=== PATIENT | male | born 1945 | race Caucasian/White ===

== ENCOUNTER → 2025-03-23 12:17 | Outpatient (REF) | payer MEDICARE, BC, SELFPAY ==
[2025-03-23 13:02] LABS: Hematocrit 38.3 % (39.0-52.0); Hemoglobin 12.8 g/dL (13.0-18.0); Mean Corp Hgb Conc. 33.4 g/dL (33.0-37.0); Mean Corpuscular Volume 93.9 fL (80.0-94.0); Nucleated Red Blood Cells % 0 % (-); Platelet Count 187 10^3/uL (130-400); Red Cell Dist. Width 13.2 % (11.5-14.5)
[2025-03-23 13:12] LABS: INR 1.11; PT 14.6 Sec (11.4-14.6)
[2025-03-23 13:14] LABS: ALT (SGPT) 24 U/L (0-50); AST (SGOT) 29 U/L (17-59); Albumin 4.5 g/dl (3.5-5.0); Alkaline Phosphatase 71 U/L (38-126); Blood Urea Nitrogen 19 mg/dl (9-20); Calcium 8.8 mg/dl (8.4-10.2); Carbon Dioxide 26 mmol/L (22-30); Chloride 103 mmol/L (98-107); Glucose 91 mg/dl (70-99); Magnesium 2.0 mg/dl (1.6-2.3); Potassium 4.7 mmol/L (3.5-5.1); Sodium 133 mmol/L (135-145); Total Protein 7.1 g/dl (6.3-8.2); eGFR > 60.00
== END ==
LOC: SDSPAT 12:17
PROVIDERS: ATTENDING PHYSICIAN Internal Medicine Cardiovascular Disease; FAMILY PHYSICIAN Internal Medicine; REFERRING PHYSICIAN Student in an Organized Health Care Education/Training Program
DX: I48.0 Paroxysmal atrial fibrillation (principal)
CPT/HCPCS: 36415; 75572; 80053; 83735; 85025; 85610; 86850; 86900; 86901; 93005; Q9967

== ENCOUNTER 2025-04-10 07:32 | Day surgery (SDC) | payer MEDICARE, BC, SELFPAY ==
[2025-03-23 12:34] VITALS: BMI 30.2
[2025-04-10] VITALS (15 sets, daily range): BP systolic 90–148; BP diastolic 50–77; BMI 30.2
--- NOTE | 2025-04-10 08:08 | ITS.CL.ABL ---
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
Ablation
Procedure Report:
ELECTROPHYSIOLOGIC STUDY AND POSSIBLE ABLATION
DATE: April 02, 2025
Primary Care Provider: Dr. Jose R Aguirre
Primary Molding Line Assistant: Milvia MICHAEL
INDICATION:
Symptomatic Atrial Fibrillation and atrial flutter.
Paroxysmal
HISTORY: See H and P.
Symptomatic AF, poorly controlled with attempted medical therapy.
He was referred for electrophysiologic consultation from Milvia MICHAEL regarding consideration for ablative strategies for rhythm control of symptomatic atrial fibrillation and atrial flutter.
He has demonstrated both atrial fibrillation as well as a more regular rhythm consistent with an atrial tachycardia. He has required cardioversion in the past. He has been maintained on antiarrhythmic drug therapy as well as rate control with
low-dose flecainide as well as low-dose beta-corey. Medical titration has been limited by marked bradycardia.
Mr. 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
remote DCCV currently on flecainide 50 mg twice daily.�
HAS-BLED: 1
Age
CHADSVASc: 2
Age
PRESENTING RHYTHM: SR
HISTORY: See H and P.
Symptomatic AF, poorly controlled with attempted medical therapy.
ANTIARRHYTHMIC DRUG: Flecainide
ANTICOAGULATION: Eliquis 5 mg twice daily
'TIME-OUT': called and confirmed.
SEDATION/ANESTHESIA: provided via the anesthesia department using general anesthesia.
PROCEDURE:
Ultrasound Guidance with real-time visualization of needle insertion and vessel patency performed by me for femoral venous Vascular Access.
Under real-time US guidance, the needle was advanced with negative pressure into the vein. The needle was seen entering the vessel lumen with a good return of dark red flow, the syringe was removed, non-pulsatile, dark red blood low was noted and
the wire was passed without difficulty, then the needle was removed. US confirmed the wire was in the vein, not going into an artery,
Images were taken and saved for the patient's permanent record. Imaging findings typical femoral venous anatomy. Direct visualization of needle puncture into the femoral vein was observed and recorded.
A decapolar CS catheter was placed within the CS for mapping and pacing.
The intracardiac ultrasound catheter was positioned in the RA for continuous intracardiac ultrasound imaging.
Heparin bolus and infusion to target ACT at 300 -350 seconds was administered. Transseptal puncture was performed. This entailed advancing a sheath with dilator into the superior vena cava and withdrawing both (monitoring intracardiac ultrasound,
fluoroscopy and tip pressure) with the tip oriented toward the atrial septum. The fossa ovalis was engaged (indicated by sudden displacement of the sheath tip as well as tenting of the fossa seen on intracardiac ultrasound).
Transseptal puncture was performed. Left atrial catheter position was confirmed by echocardiographic imaging, pressure monitoring (LA mean pressure [ ] mm Hg) and fluoroscopy. The sheath was advanced over the dilator and positioned in the left
atrium.
The Sphere 9 multipolar mapping/ablation Sphere-9 catheter was positioned through the transseptal sheath for high density mapping.
Geometry and voltage mapping was performed using the [employer] mapping system for three-dimensional electroanatomical mapping.
Catheter positioning was guided and confirmed using both I.C.E. and fluoroscopy.
Cardioversion resulted in sinus rhythm.
High density electroanatomical three-dimensional mapping demonstrated five PVs: LSPV, LIPV, RSPV, RMPV, RIPV.
Ablation strategy included PVI as well as mapping for extra PV contributors to atrial fibrillation which would also be targeted if present.
After accomplishing pulmonary venous isolation, mapping identified additional areas likely to be extra PV contributors to atrial fibrillation. These areas demonstrated patchy low voltage as well as complex fractionated electrograms. These areas can
be sites for the formation of rotors which can drive and maintain atrial fibrillation. These areas are known to be significant contributors to initiation and perpetuation of atrial fibrillation.
Additional energy applications/additional ablation sets targeted extra PV contributors to atrial fibrillation.
Targets for additional PFA ablation included:
LA posterior wall targeted with pulsed electric field energy isolating the posterior wall of the left atrium
After ablation of the posterior wall, additional targets were addressed:
LA inferior floor
These areas were ablated using pulsed electric field energy eliminating the extra PV contributors to atrial fibrillation.
At the end of left atrial ablation, there is electrical isolation of the pulmonary veins, the posterior wall, the inferior/floor of the left atrium rendering the sites no longer able to contribute to atrial fibrillation.
During mapping and ablation at the right superior pulmonary vein, and atrial tachycardia developed. Regular, cycle length 290 ms
Entrainment from the left atrium finds his left atrium is outside the tachycardia circuit.
Entrainment from right atrial electrodes finds the right atrium is within the tachycardia circuit.
High density electroanatomical mapping/activation mapping was then performed of the right atrium and this along with entrainment data defines typical counterclockwise right atrial flutter.
CTI ablation was then undertaken with the sphere 9 catheter. Radiofrequency energy was delivered closer to the tricuspid valve annulus and at the mid isthmus down to the inferior vena cava pulsed electric field energy was delivered. At no point
was there any ST segment elevation observed. During delivery of ablation, the tachycardia terminated to sinus rhythm. Ablation was completed to ensure bidirectional block at the CTI at approximately 6:00 in the LUXEMBOURGER 30 degree view. Differential
pacing was able to prove bidirectional block across the line.
Programmed electrostimulation including burst atrial pacing as well the delivery of decremental extrastimuli down to atrial effective refractory period and no sustained arrhythmias could be induced.
I.C.E. :
Pre-Ablation Post-Ablation
LVEF: 55 % 55 %
WMA: None none
Pericardial effusion: None none
LA Pressure (mmHg) 15
COMPLICATIONS:
None
SUMMARY:
- Mapping and ablation to isolate the PVs resulting in electrical isolation of the pulmonary veins
- Additional AF ablation sets X 2 after PVI (LA posterior wall, Inf/floor of the LA posterior wall) resulting in elimination of the targeted extra PV contributors to atrial fibrillation.
- Mapping and ablation of second tachycardia (right atrial flutter) rendering it non-inducible with programmed electrical stimulation
- 3-D Electroanatomical Mapping
- Intracardiac Ultrasound
- Ultrasound guidance for vascular access
Post ablation, I discussed today's findings and results with the patient's sister, Dorothy.
RECOMMENDATIONS:
- Observe in monitored bed.
- Maintain oral anticoagulation.
- Discontinue flecainide, continue metoprolol XL at 12.5 mg daily
- Office visit with ALEC Arteaga in 3 to 4 months
- Continue cardiovascular care with Milvia MICHAEL
- His preprocedure CTA findings several small pulmonary nodules and results have been forwarded to the [place] pulmonary nodule board for further review. I discussed this with the patient's sister.
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 We have communicated this to his sister and asked her to follow-up with his primary care provider and also to make an appointment with an ENT for further evaluation.
Copy to:
Primary Care Provider: Dr. Jose R Aguirre
Primary Molding Line Assistant: Milvia MICHAEL
[2025-04-10] MEDS: NSS 500 IV (08:32)
[2025-04-10 11:29] LABS: ACT-LR - POC 363 Seconds (116-155)
[2025-04-10 11:51] LABS: ACT-LR - POC 347 Seconds (116-155)
[2025-04-10 12:06] LABS: ACT-LR - POC 377 Seconds (116-155)
[2025-04-10] MEDS: FLOMAX 0.4 MG PO (12:58)
[2025-04-10] MEDS: TYLENOL 650 MG PO (13:03)
[2025-04-10] MEDS: PROSCAR 5 MG PO (13:46)
[2025-04-10] MEDS: ANESTHETIC LOZENGE 1 LOZENGE PO ×2 (13:52→20:08)
--- NOTE | 2025-04-10 14:28 | PTCARENOTE ---
Proscar and Flomax given. Has urge to void but is unable to . Bladder scanned for 529mls. Will rescan in 1 hr is pt uncomfortable and unable to void.
--- NOTE | 2025-04-10 15:53 | W.DS.TRANS ---
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
-
Discharge Instructions:
Discharge Diagnosis/Procedures Atrial fibrillation and flutter post ablation
Diet Low Cholesterol
Driving Restrictions No driving for 24 hours
Instructions:
Stand-Alone Forms: DC Instructions- Cath/EP Lab
Changes to Home Medications: Yes
Discharge Medications:
DC Medications w/original date entered in [facility]
apixaban 5 mg tablet (Eliquis) 5 mg PO BID 03/19/25
aspirin 81 mg tablet,delayed release 81 mg PO DAILY 03/19/25
atorvastatin 40 mg tablet 40 mg PO DAILY 03/19/25
finasteride 5 mg tablet 5 mg PO DAILY 03/19/25
latanoprost 0.005 % eye drops 1 drp ophthalmic (eye) DAILY 03/19/25
losartan 100 mg tablet 100 mg PO DAILY 03/19/25
metoprolol succinate 25 mg tablet,extended release 24 hr 12.5 mg PO DAILY 03/19/25
phenytoin sodium extended 100 mg capsule 300 mg PO DAILY 03/19/25
tamsulosin 0.4 mg capsule 0.4 mg PO HS 03/19/25
Home Medication Changes
stopped flecainide
Pending Results: No
--- NOTE | 2025-04-10 16:18 | CM ---
pt prev indep, lives with his sister in a 2 story home. no dc plannin gneeds noted. plan is for dc to home when medically stable.
--- NOTE | 2025-04-10 17:40 | PTCARENOTE ---
pt received from CCL RN, oriented, sister at bedside. SB on the monitor, HR 40-50s. palpable pulses. pt on RA. voids in urinal. bedrest. R groin c/d/i, no s/s of bleeding or hematoma. PIV.
[2025-04-10 18:14] LABS: Hepatitis C Antibody Negative (Negative)
[2025-04-10] MEDS: LIPITOR 40 MG PO (20:07)
[2025-04-10] MEDS: ELIQUIS 5 MG PO (20:08)
[2025-04-10] MEDS: XALATAN OPHTHALMIC SOLUTION 1 DROP BOTH EYES (20:08)
[2025-04-10] MEDS: NSS IV (20:10)
--- NOTE | 2025-04-11 02:45 | PTCARENOTE ---
Pt SB on monitor with Hr 47-53 bpm. vss Rt gtoin post PVI CDI, positive pulses. Pt denies pain or any discomfort. OOB with x 1 assist. Call pham within reach
[2025-04-11 03:41] VITALS: BP 125/63
[2025-04-11 04:21] LABS: Hematocrit 33.9 % (39.0-52.0); Hemoglobin 11.4 g/dL (13.0-18.0); Mean Corp Hgb Conc. 33.6 g/dL (33.0-37.0); Mean Corpuscular Volume 93.1 fL (80.0-94.0); Platelet Count 148 10^3/uL (130-400); Red Cell Dist. Width 13.9 % (11.5-14.5)
[2025-04-11] MEDS: ANESTHETIC LOZENGE 1 LOZENGE PO (04:29)
[2025-04-11 04:44] LABS: Blood Urea Nitrogen 19 mg/dl (9-20); Calcium 8.1 mg/dl (8.4-10.2); Carbon Dioxide 25 mmol/L (22-30); Chloride 109 mmol/L (98-107); Estimated Creatinine Clearance 75 ml/min; Glucose 93 mg/dl (70-99); Magnesium 2.0 mg/dl (1.6-2.3); Potassium 4.2 mmol/L (3.5-5.1); Sodium 135 mmol/L (135-145); eGFR > 60.00
[2025-04-11 07:13] VITALS: BP 129/63
--- NOTE | 2025-04-11 08:25 | W.PN.CARDCBS ---
Addendum entered and electronically signed by Gavin Galindo DO 04/11/25 09:48:
I saw and examined the patient.
The Emergency Department Rn's note was reviewed and I agree with the note.
Comment:
Patient seen and examined this morning. No acute events overnight. Patient resting comfortably in bed without complaint. Denies chest pain, shortness of breath, palpitations, weakness. Patient is status post PFA PVI and CTI flutter ablation
04/10/2025.
GEN: No distress, awake, Ox3
HEENT: supple, anicteric, mmm
LUNGS: CTA, no wheezes/rales
CV: Reg, S1/S2, no murmur
ABD: soft, BS+, NT/ND
EXT: No edema
NEURO: Gross non-focal
SKIN: No rash; right groin site clean, dry, intact, soft, nontender
Telemetry shows sinus rhythm
Stable for DC from CV standpoint.
Flecainide discontinued
Continue beta-corey, oral anticoagulation
Follow-up in office as scheduled appointment arranged
Original Note:
Today's Communication / Plan
-
Stable for discharge status post PVI
Flecainide stopped
Continue metoprolol and Eliquis
Follow-up in office in 3 months, appointment arranged
Impression / Plan
-
Primary supervisor shaving and splitting: Dr. Perez
Cardroom Attendant: Dr. Adriano Robles
Impression:
Paroxysmal atrial fibrillation
Typical atrial flutter
Status post pulsed field PVI and right atrial flutter ablation 04/02/2025
Hypertension.
Hyperlipidemia.
Benign prostatic hyperplasia.
Seizure disorder.
Glaucoma.
Cognitive defect
Ambulatory dysfunction
Pulmonary nodule seen on CT scan.
Former tobacco abuse
Plan:
-Status post pulsed field PVI with additional ablation set to left atrial posterior wall, inferior/floor of the LA posterior wall and ablation of right atrial flutter 04/11/2025
-Patient feels well with no palpitations
- no discomfort at right groin puncture site
-Telemetry personally reviewed, sinus bradycardia 44 to 56 bpm
- Maintain oral anticoagulation with Eliquis
- Flecainide discontinued post ablation
- Continue Toprol 12.5 mg daily
- EP CHRIS follow-up in 3 to 4 months
- Resume usual cardiovascular care with primary supervisor shaving and splitting Dr. Perez and Milvia MICHAEL
- Procedures CTA with several small pulmonary nodules, study forwarded to [place] pulmonary nodule board for further review, patient's sister aware
- Known left parotid mass, to follow-up with PCP and see ENT for eval, sister aware
Progress Note - Anglesmith Helper
Subjective
Date of Service: April 11, 2025
Status post PVI
Maintaining sinus rhythm
No palpitations, lightheadedness
No groin discomfort
Objective
Labs:
04/11/25 03:53
04/11/25 03:53
Labs
Hgb 11.4 g/dL (13.0-18.0) L 04/11/25 03:53
Hct 33.9 % (39.0-52.0) L 04/11/25 03:53
Plt Count 148 10^3/uL (130-400) 04/11/25 03:53
Sodium 135 mmol/L (135-145) 04/11/25 03:53
Potassium 4.2 mmol/L (3.5-5.1) 04/11/25 03:53
BUN 19 mg/dl (9-20) 04/11/25 03:53
Creatinine 0.8 mg/dL (0.7-1.3) 04/11/25 03:53
Glucose 93 mg/dl (70-99) 04/11/25 03:53
Vital Signs and I&O:
Vital Signs
Temp Pulse Resp BP Pulse Ox
98.7 F 44 18 129/63 96
04/11/25 07:14 04/11/25 08:15 04/11/25 07:14 04/11/25 07:13 04/11/25 07:14
Vital Signs
Temp Pulse Resp BP Pulse Ox
98.7 F 44 18 129/63 96
04/11/25 07:14 04/11/25 08:15 04/11/25 07:14 04/11/25 07:13 04/11/25 07:14
Intake & Output
04/09/25 04/10/25 04/11/25 04/12/25
06:59 06:59 06:59 06:59
Intake Total 2160 / 2160
Output Total 1200 / 1200 400 / 400
Balance 960 / 960 -400 / -400
Physical Exam
Physical Exam
GEN: No distress, awake, Ox3
HEENT: supple, anicteric, mmm
LUNGS: CTA, no wheezes/rales
CV: Reg, S1/S2, no murmur
ABD: soft, BS+, NT/ND
EXT: No edema
NEURO: Gross non-focal
SKIN: No rash
[2025-04-11] MEDS: COZAAR 100 MG PO (08:43)
[2025-04-11] MEDS: ELIQUIS 5 MG PO (08:43)
[2025-04-11] MEDS: PROSCAR 5 MG PO (08:43)
[2025-04-11] MEDS: TOPROL XL 12.5 MG PO (08:43)
[2025-04-11] MEDS: DILANTIN 300 MG PO (08:43)
[2025-04-11] MEDS: ASPIR LOW (ENTERIC COATED) 81 MG PO (08:43)
--- NOTE | 2025-04-11 09:01 | PTCARENOTE ---
pt aaox3. states no pain or sob. right groin site dressing c/d/i no ecchymosis noted.
== END 2025-04-11 11:36 | disposition home or self-care (01) ==
LOC: CATH 07:32
PROVIDERS: Nurse Practitioner Adult Health; ATTENDING PHYSICIAN Internal Medicine Cardiovascular Disease; FAMILY PHYSICIAN Internal Medicine; OTHER PHYSICIAN Student in an Organized Health Care Education/Training Program
DX: I48.0 Paroxysmal atrial fibrillation (principal); G40.909 Epilepsy, unspecified, not intractable, without status epilepticus; N40.0 Benign prostatic hyperplasia without lower urinary tract symptoms; E78.5 Hyperlipidemia, unspecified; I10 Essential (primary) hypertension; E66.9 Obesity, unspecified; H40.9 Unspecified glaucoma; I25.10 Atherosclerotic heart disease of native coronary artery without angina pectoris; I44.0 Atrioventricular block, first degree; Z87.891 Personal history of nicotine dependence; I48.3 Typical atrial flutter; Z79.82 Long term (current) use of aspirin; Z79.01 Long term (current) use of anticoagulants; Z79.899 Other long term (current) drug therapy; Z90.49 Acquired absence of other specified parts of digestive tract
CPT/HCPCS: C1733; C1894; C1769; C1766; C1730; C1892; 80048; 83735; 85027; 85347; 86803; 86900; 86901; 93005; 93655; 93656; 93657